=== PATIENT | male | born 1990 | race Two or more races ===

== ENCOUNTER 2024-07-27 10:28 | Outpatient (RCR) | payer MEDICAID, SELFPAY ==
--- NOTE | 2024-07-27 10:42 | PT.OIERPT ---
PT OP Initial Eval Patient Information Outpatient Physical Therapy Treatment Date: 07/27/24 Visit Reasons: LEFT SIDE MILD MODERATE WEAKNESS Medical Diagnosis: I69.3 G81.94 Treatment Dx #1: CVA with L hemiplegia Start of Care: 07/27/24 Date of Onset: 04/30/24 Smoking Status Smoking Status: Never smoker Initial Assessment Subjective: Pt is 34 yr old bahamian speaking male s/p CVA with L hemiplegia in April. This started with intense headache at home and then he went unconscious and taken by ambulance to [facility]. He couldn't move LE's for a few days and walk for about 15 days after the event. Pt reports L sided weakness in UE and LE with difficulty opening jars and prolonged walking. 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 He can ambulate about 1 block slowly and then he rests due to increased heart rate. 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 Pt has decreased strength and difficulty holding isometric positions without shaking. Pt requires skilled therapy and has fair rehab potential. In this current state he doesn't seem able to perform work duties in the [employer] due to L sided weakness and decreased ambulatory tolerance. Short Term and Correction Goals 1. Ind with HEP 2. Improved L hand special library librarian strength to at least 15 lbs to lift objects and open bottles 3. Improved L ankle DF and quad extension to 4-/5 to ambulate with improved WB 4. Pt will ambulate with symmetrical steps and WB on L x2 blocks Treatment Plan 1. Manual therapy ? 2. Therex ? 3. Modalities as indicated, mechanical traction, estim, moist heat, ice 4. Gait training 5. Neuromuscular reeducation Frequency and Duration: 2x a week for 18 sessions plus the evaluation. Will need more auth after 12 Certification Dates: 07/27/24 to 10/25/24 Procedure Charges OP PT Eval Mod Complex 30 minutes: Yes
== END 2024-08-03 23:59 | disposition home or self-care (01) ==
LOC: CPTX 10:28
DX: I69.354 Hemiplegia and hemiparesis following cerebral infarction affecting left non-dominant side (principal)
CPT/HCPCS: 97162

== ENCOUNTER 2024-08-08 10:00 | Outpatient (RCR) | payer MEDICAID, SELFPAY ==
--- NOTE | 2024-08-04 12:51 | PT.ODAYNRPT ---
PT Outpatient Daily Note OP Daily Note Outpatient Physical Therapy Treatment Date: 08/04/24 Visit Reasons: Left side moderate weakness Subjective: Same as time of evaluation Objective: See F/S for therex Assessment: Radha Laws with the total gym partial body weight squats on 35% body weight likely due to weakness and limited motor control Plan: Continue per POC Length of Time (minutes) of Treatment: 30 Minutes Procedure Charges Therapeutic Exercise 30 minutes: Yes
--- NOTE | 2024-08-08 11:08 | PT.ODAYNRPT ---
PT Outpatient Daily Note OP Daily Note Outpatient Physical Therapy Treatment Date: 08/08/24 Visit Reasons: Left side moderate weakness Subjective: Pt says he did the bike at home with less LE shaking this past weekend Objective: See F/S for therex Assessment: L LE shakes with the total gym partial body weight squats on 35% body weight likely due to weakness and limited motor control but he started doing SL on just the L today. Plan: Continue per POC Length of Time (minutes) of Treatment: 30 Minutes Procedure Charges Therapeutic Exercise 30 minutes: Yes
== END 2024-09-03 23:59 | disposition home or self-care (01) ==
LOC: CPTX 10:00
DX: I69.354 Hemiplegia and hemiparesis following cerebral infarction affecting left non-dominant side (principal)
CPT/HCPCS: 97110